=== PATIENT | male | born 1945 | race Caucasian/White ===

== ENCOUNTER 2017-10-24 15:37 | Observation (INO) | payer MEDICARE, BC ==
[~2017-10-24] VITALS: Ht 172.7 cm; Wt 81.5 kg
[2017-10-24 15:45] VITALS: BP 109/57; PULSE 71; RESP 18; TEMP 97.5; O2SAT 98
[2017-10-24] MEDS ORDERED: METF500T PO (15:59)
[2017-10-24] MEDS ORDERED: TAMS0.4C4 PO (15:59)
[2017-10-24] MEDS ORDERED: ATOR40TA16 PO (15:59)
--- NOTE | 2017-10-24 16:11 | RADRPT ---
EXAM DATE: 10/24/2017 4:05 PM EDT AGE/SEX: 72 years / Male INDICATIONS: Syncopal episode, left sided gaze. CLINICAL DATA: This is the patient's initial encounter. Patient reports that signs and symptoms have been present for 1 day and indicates a pain score of 0/10. MEDICAL/SURGICAL HISTORY: Diabetes. . RADIATION DOSE: 55.51 CTDI (mGy) COMPARISON: No prior exams available for comparison. TECHNIQUE: CT of the head without contrast. Using automated exposure control and adjustment of the mA and/or kV according to patient size, radiation dose was kept as low as reasonably achievable to ob tain optimal diagnostic quality images. FINDINGS: Cerebrum: The ventricles are normal for age. No evidence of midline shift, mass lesion, hemorrhage or acute infarction. No extraaxial fluid collections are seen. Posterior Fossa: The cerebellum and brainstem are intact. The 4th ventricle is midline. The cerebe llopontine angle is unremarkable. Extracranial: The visualized portion of the orbits is intact. Skull: The calvaria is intact. No evidence of skull fracture. CONCLUSION: 1. Negative CT Head non contrast. Electronically signed by: Rasta Bearden MD 10/24/2017 4:10 PM EDT
--- NOTE | 2017-10-24 16:16 | PD ---
HPI Chief Complaint: TIA Time Seen by Provider: 15:43 Travel History International Travel<30 days: No Contact w/Intl Traveler<30days: No Traveled to known affect area: No History of Present Illness HPI 72yo M was brought in as stroke alert by [facility]. As per [facility], pt was having a procedure at [facility] and when they arrived, he had left sided weakness, left arm more left leg and also left gaze. Pt's symptoms had completely resolved when he arrived to the ED. Pt was there today for evaluation of his blurry vision in left eye for 2 weeks. [facility] Past Medical History High Cholesterol: Yes Diabetes: Yes Patient Takes Glucophage: Yes Diminished Hearing: No Genitourinary: Yes (prostate issues) Influenza Vaccination: No ?: Not Social History Alcohol Use: No Tobacco Use: Yes Allergies-Medications (Allergen,Severity, Reaction): Coded Allergies: No Known Allergies (Verified Allergy, Unknown, 10/24/17) Reported Meds & Prescriptions Reported Meds & Active Scripts Active Reported Atorvastatin (Atorvastatin Calcium) 40 Mg Tab 40 Mg PO HS Tamsulosin (Tamsulosin HCl) 0.4 Mg Cap 0.8 Mg PO HS Metformin (Metformin HCl) 500 Mg Tab 500 Mg PO DAILY With a meal Review of Systems Except as stated in HPI: all other systems reviewed are Neg Physical Exam Narrative GENERAL: 72yoM not in distress. SKIN: Focused skin assessment warm/dry. HEAD: Atraumatic. Normocephalic. EYES: Pupils are dilated. No scleral icterus. No injection or drainage. ENT: No nasal bleeding or discharge. Mucous membranes pink and moist. NECK: Trachea midline. No JVD. CARDIOVASCULAR: Regular rate and rhythm. No murmur appreciated. RESPIRATORY: No accessory muscle use. Clear to auscultation. Breath sounds equal bilaterally. GASTROINTESTINAL: Abdomen soft, non-tender, nondistended. MUSCULOSKELETAL: No obvious deformities. No clubbing. No cyanosis. No edema. NEUROLOGICAL: Awake and alert. No obvious cranial nerve deficits. Motor grossly within normal limits in all extremities. Sensation intact. Normal speech. NIH stroke scale 0. PSYCHIATRIC: Appropriate mood and affect; insight and judgment normal. Data Data Last Documented VS Vital Signs Date Time Temp Pulse Resp B/P (MAP) Pulse Ox O2 Delivery O2 Flow Rate FiO2 10/24/17 16:25 63 18 113/52 (72) 98 Room Air 10/24/17 15:[address] Brain W/O Iv Contrast(Rout) (10/24/17 ) Complete Blood Count With Diff (10/24/17 15:44) Basic Metabolic Panel (Bmp) (10/24/17 15:44) Act Partial Throm Time (Ptt) (10/24/17 15:44) Prothrombin Time / Inr (Pt) (10/24/17 15:44) Aspirin (Aspirin) (10/24/17 17:00) Labs Laboratory Tests Test 10/24/17 16:10 White Blood Count 8.5 TH/MM3 Red Blood Count 3.80 MIL/MM3 Hemoglobin 12.4 GM/DL Hematocrit 36.9 % Mean Corpuscular Volume 97.0 FL Mean Corpuscular Hemoglobin 32.7 PG Mean Corpuscular Hemoglobin Concent 33.7 % Red Cell Distribution Width 13.6 % Platelet Count 233 TH/MM3 Mean Platelet Volume 7.9 FL Neutrophils (%) (Auto) 67.3 % Lymphocytes (%) (Auto) 26.6 % Monocytes (%) (Auto) 4.0 % Eosinophils (%) (Auto) 0.7 % Basophils (%) (Auto) 1.4 % Neutrophils # (Auto) 5.7 TH/MM3 Lymphocytes # (Auto) 2.3 TH/MM3 Monocytes # (Auto) 0.3 TH/MM3 Eosinophils # (Auto) 0.1 TH/MM3 Basophils # (Auto) 0.1 TH/MM3 CBC Comment DIFF FINAL Differential Comment Prothrombin Time 12.0 SEC Prothromb Time International Ratio 1.2 RATIO Activated Partial Thromboplast Time 24.9 SEC Blood Urea Nitrogen 13 MG/DL Creatinine 1.00 MG/DL Random Glucose 119 MG/DL Calcium Level 9.0 MG/DL Sodium Level 138 MEQ/L Potassium Level 3.7 MEQ/L Chloride Level 103 MEQ/L Carbon Dioxide Level 25.6 MEQ/L Anion Gap 9 MEQ/L Estimat Glomerular Filtration Rate 74 ML/MIN [facility] Medical Decision Making Medical Screen Exam Complete: Yes Emergency Medical Condition: Yes Interpretation(s) EKG: NSR 68bpm. Normal axis. RBBB. No significant ST elevation or depression. Differential Diagnosis TIA vs. medication effects vs. hypotension Narrative Course 72yo M was brought in by [facility]AC as stroke alert. However, all his symptoms resolved upon arrival so it was downgraded to a TIA work up. I discussed with Dr. Roverto Hudson from [facility] [phone] who said pt was referred to him for uveitis of left eye and does have it and is on steroids. He underwent a fluorescein angiogram today and his mental status changed prior to the injection as well as after. Said he dropped his water and was definitely not as lucid. Labs reviewed, no leukocytosis. H/H 12.4/36.9. BMP unremarkable. CT brain negative. Pt given aspirin and will admit for TIA work up. Discussed with Dr. Díaz and accepted to her service. Diagnosis Primary Impression: TIA (transient ischemic attack) Qualified Codes: G45.9 - Transient cerebral ischemic attack, unspecified Admitting Information Admitting Physician Requests: Lisa Fernandes DO Oct 24, 2017 16:16
[2017-10-24 16:25] VITALS: BP 113/52; PULSE 63; RESP 18; O2SAT 98
[2017-10-24 16:25] LABS: AUTOMATED NEUTROPHIL # 5.7 TH/MM3 (1.8-7.7); BASOPHIL # 0.1 TH/MM3 (0-0.2); BASOPHIL % 1.4 % (0.0-2.0); EOSINOPHIL # 0.1 TH/MM3 (0-0.4); EOSINOPHIL % 0.7 % (0.0-4.0); HEMATOCRIT 36.9 % (39.0-51.0); HEMOGLOBIN 12.4 GM/DL (13.0-17.0); LYMPH % 26.6 % (9.0-44.0); LYMPHOCYTE # 2.3 TH/MM3 (1.0-4.8); MEAN CORPUSCULAR HEMOGLOBIN 32.7 PG (27.0-34.0); MEAN CORPUSCULAR HGB CONC 33.7 % (32.0-36.0); MEAN PLATELET VOLUME 7.9 FL (7.0-11.0); MONOCYTE # 0.3 TH/MM3 (0-0.9); NEUT % 67.3 % (16.0-70.0); PLATELET COUNT 233 TH/MM3 (150-450); RED CELL DISTRIBUTION WIDTH 13.6 % (11.6-17.2); WHITE BLOOD COUNT 8.5 TH/MM3 (4.0-11.0)
[2017-10-24 16:48] LABS: BICARBONATE 25.6 MEQ/L (21.0-32.0)
[2017-10-24 16:50] LABS: INTERNATIONAL NORMALIZED RATIO 1.2 RATIO
[2017-10-24] MEDS ORDERED: ASPIRIN 325 MG TAB PO ONE (17:00)
[2017-10-24] MEDS ORDERED: DEXTROSE 50% IN WATER 50 ML VIAL(D50) IV PUSH PRN (17:15)
[2017-10-24] MEDS ORDERED: GLUCAGON 1 MG/ML VIAL OTHER PRN (17:15)
[2017-10-24] MEDS ORDERED: SODIUM CHLORIDE 0.9% FLUSH 10 ML FLUSH IV FLUSH PRN (17:15)
--- NOTE | 2017-10-24 17:59 | HHI.HP ---
HPI Service [facility] Primary Care Physician Kwadwo Olson M.D. 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 Stroke alert was called. Supposedly patient underwent a fluorescein angiogram today for uveitis of left eye and per records patient's mental status changed, as well as patient appeared to have left upper and lower extremity weakness with left eye gaze. Per records symptoms improved upon presentation to the ER. The patient's states that the business systems lead dilated his eyes and states that they had trouble with his left eye responding properly to medication dilation. Patient denies any recent illness including fever, chills, cough, shortness of breath, headache, dizziness, lightheadedness, abdominal pain, nausea or vomiting, diarrhea or dysuria. PCP is Dr. Olson, denies any new changes to his medicines. Review of Systems Constitutional: COMPLAINS OF: Fatigue, DENIES: Diaphoretic episodes, Fever, Chills Eyes: DENIES: Blurred vision, Diplopia, Vision loss Respiratory: DENIES: Cough, Sputum production, Shortness of breath Cardiovascular: DENIES: Chest pain, Palpitations, Syncope, Dyspnea on Exertion , Lower Extremity Edema Gastrointestinal: DENIES: Abdominal pain Musculoskeletal: DENIES: Joint pain Hematologic/lymphatic: DENIES: Bruising Neurologic: DENIES: Abnormal gait, Headache, Localized weakness, Paresthesias, Seizures, Speech Problems, Tremor, Poor Balance Psychiatric: DENIES: Anxiety Except as stated in HPI: all other systems reviewed are Neg Past Family Social History Past Medical History Left eye uveitis Diabetes Hyperlipidemia BPH Past Surgical History Bilateral knee arthroplasty Reported Medications Active Reported Atorvastatin (Atorvastatin Calcium) 40 Mg Tab 40 Mg PO HS Tamsulosin (Tamsulosin HCl) 0.4 Mg Cap 0.8 Mg PO HS Metformin (Metformin HCl) 500 Mg Tab 500 Mg PO DAILY With a meal Allergies: Coded Allergies: No Known Allergies (Verified Allergy, Unknown, 10/24/17) Active Ordered Medications Current Medications Medications (Trade) Dose Ordered Sig/Favian Route Start Time Stop Time Status Last Admin (NS Flush) 2 ml BID IV FLUSH 10/24/17 21:00 (NS Flush) 2 ml UNSCH PRN IV FLUSH 10/24/17 17:15 (D50w (Vial) Inj) 50 ml UNSCH PRN IV PUSH 10/24/17 17:15 (Glucagon Inj) 1 mg UNSCH PRN OTHER 10/24/17 17:15 Family History Paternal medical history significant for Alzheimer's. Mother had pancreatic cancer. Social History Patient admits to smoking one half pack per day cigarettes since his teen years. Denies any alcohol or illicit drug use. Physical Exam Vital Signs Vital Signs Date Time Temp Pulse Resp B/P (MAP) Pulse Ox O2 Delivery O2 Flow Rate FiO2 10/24/17 16:25 63 18 113/52 (72) 98 Room Air 10/24/17 15:45 97.5 71 18 109/57 (74) 98 Physical Exam GENERAL: Well-developed, well-nourished patient in [facility]. SKIN: Warm and dry. No rash. HEAD: Normocephalic. Atraumatic. EYES: Pupils equal and round. No scleral icterus. No injection or drainage. Right pupil dilated 4 mm, left eye 3 mm. ENT: No nasal bleeding or discharge. Mucous membranes pink and moist. NECK: Supple. Trachea midline. CARDIOVASCULAR: Regular rate and rhythm. S1, S2 noted. No murmur appreciated. RESPIRATORY: No accessory muscle use. Clear to auscultation. Breath sounds equal bilaterally. GASTROINTESTINAL: Abdomen soft, non-tender, nondistended. Normoactive bowel sounds x4. MUSCULOSKELETAL: No obvious deformities. Extremities without clubbing, cyanosis , or edema. NEUROLOGICAL: Awake and alert. No obvious cranial nerve deficits. Motor grossly within normal limits. 5/5 muscle strength in bilateral upper and lower extremities. Normal speech. PSYCHIATRIC: Appropriate mood and affect; insight and judgment normal. Laboratory Laboratory Tests Test 10/24/17 16:10 White Blood Count 8.5 Red Blood Count 3.80 Hemoglobin 12.4 Hematocrit 36.9 Mean Corpuscular Volume 97.0 Mean Corpuscular Hemoglobin 32.7 Mean Corpuscular Hemoglobin Concent 33.7 Red Cell Distribution Width 13.6 Platelet Count 233 Mean Platelet Volume 7.9 Neutrophils (%) (Auto) 67.3 Lymphocytes (%) (Auto) 26.6 Monocytes (%) (Auto) 4.0 Eosinophils (%) (Auto) 0.7 Basophils (%) (Auto) 1.4 Neutrophils # (Auto) 5.7 Lymphocytes # (Auto) 2.3 Monocytes # (Auto) 0.3 Eosinophils # (Auto) 0.1 Basophils # (Auto) 0.1 CBC Comment DIFF FINAL Differential Comment Prothrombin Time 12.0 Prothromb Time International Ratio 1.2 Activated Partial Thromboplast Time 24.9 Blood Urea Nitrogen 13 Creatinine 1.00 Random Glucose 119 Calcium Level 9.0 Sodium Level 138 Potassium Level 3.7 Chloride Level 103 Carbon Dioxide Level 25.6 Anion Gap 9 Estimat Glomerular Filtration Rate 74 Result Diagram: 10/24/17 1610 10/24/17 1610 Imaging Last Impressions Head CT 10/24/17 0000 Signed Impressions: CONCLUSION: 1. Negative CT Head non contrast. Septic Shock Reassessment Septic shock perfusion: reassessment completed Caprini VTE Risk Assessment Caprini VTE Risk Assessment: Mod/High Risk (score >= 2) Caprini Risk Assessment Model Point Value = 1 Point Value = 2 Point Value = 3 Point Value = 5 Age 41-60 Minor surgery BMI > 25 kg/m2 Swollen legs Varicose veins or History of unexplained or recurrent spontaneous Oral contraceptives or hormone replacement Sepsis (< 1 month) Serious lung disease, including pneumonia (< 1 month) Abnormal pulmonary function Acute myocardial infarction Congestive heart failure (< 1 month) History of inflammatory bowel disease Medical patient at bed rest Age 61-74 Arthroscopic surgery Major open surgery (> 45 min) Laparoscopic surgery (> 45 min) Malignancy Confined to bed (> 72 hours) Immobilizing plaster cast Central venous access Age >= 75 History of VTE Family history of VTE Factor V Leiden Prothrombin [id number] Lupus anticoagulant Anticardiolipin antibodies Elevated serum homocysteine Heparin-induced thrombocytopenia Other congenital or acquired thrombophilia Stroke (< 1 month) Elective arthroplasty Hip, pelvis, or leg fracture Acute spinal cord injury (< 1 month) Prophylaxis Regimen Total Risk Factor Score Risk Level Prophylaxis Regimen 0-1 Low Early ambulation 2 Moderate Order ONE of the following: *Sequential Compression Device (SCD) *Heparin 5000 units SQ BID 3-4 Higher Order ONE of the following medications: *Heparin 5000 units SQ TID *Enoxaparin/Lovenox 40 mg SQ daily (WT < 150 kg, CrCl > 30 mL/min) *Enoxaparin/Lovenox 30 mg SQ daily (WT < 150 kg, CrCl > 10-29 mL/min) *Enoxaparin/Lovenox 30 mg SQ BID (WT < 150 kg, CrCl > 30 mL/min) AND/OR *Sequential Compression Device (SCD) 5 or more Highest Order ONE of the following medications: *Heparin 5000 units SQ TID (Preferred with Epidurals) *Enoxaparin/Lovenox 40 mg SQ daily (WT < 150 kg, CrCl > 30 mL/min) *Enoxaparin/Lovenox 30 mg SQ daily (WT < 150 kg, CrCl > 10-29 mL/min) *Enoxaparin/Lovenox 30 mg SQ BID (WT < 150 kg, CrCl > 30 mL/min) AND *Sequential Compression Device (SCD) Assessment and Plan Problem List: (1) TIA (transient ischemic attack) ICD Code: G45.9 - Transient cerebral ischemic attack, unspecified Status: Acute Assessment and Plan This is a pleasant 72-year-old male patient with a known medical history of diabetes, hyperlipidemia and BPH who presented 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 Stroke alert was called. Transient ischemic attack rule out rule out CVA - Patient presented with left-sided weakness and left gaze as well as altered mental status - Head CT reviewed and negative. Will obtain MRI of the brain as well as ultrasound carotid arteries. Follow. - Was given aspirin 1 in ED. Continue daily. - Lipid panel added to labs, pending. Follow. As well as hemoglobin A1c. - CBC and BMP reviewed, essentially remarkable. - Speech therapy consulted, rule out any dysplasia. - Continue neuro checks. - Continue cardiac telemetry, monitor for any arrhythmias. - Obtain echocardiogram, pending. Follow. - Physical therapy and Occupational Therapy consulted, input and recommendations pending. Type 2 diabetes mellitus, chronic: Before meals at bedtime Accu-Cheks, sliding scale, cover as needed. Hemoglobin A1c pending. Hyperlipidemia, chronic: Continue home statin. BPH: We will continue home tamsulosin. DVT prophylaxis: SCDs. Problem Qualifiers (1) TIA (transient ischemic attack): Qualified Codes: G45.9 - Transient cerebral ischemic attack, unspecified [place] Rob[place] Oct 24, 2017 17:59
[2017-10-24 18:19] VITALS: BP 156/68; PULSE 74; RESP 18; O2SAT 98
[2017-10-24] MEDS ORDERED: PRED1SUS LEFT EYE (19:40)
[2017-10-24] MEDS ORDERED: ATRO1SOL11 LEFT EYE (19:41)
[2017-10-24] MEDS ORDERED: VALT1TAB PO (19:44)
[2017-10-24] MEDS ORDERED: ZIRG0.15 (19:44)
[2017-10-24 20:00] VITALS: BP 169/80; PULSE 107; RESP 20; TEMP 96.5; O2SAT 100
[2017-10-24 20:30] VITALS: PULSE 84
[2017-10-24] MEDS ORDERED: TAMSULOSIN HCL 0.4 MG CAP PO SCH (21:00)
[2017-10-24] MEDS ORDERED: ATORVASTATIN 40 MG TAB PO SCH (21:00)
[2017-10-24] MEDS: SODIUM CHLORIDE 0.9% FLUSH 10 ML FLUSH IV FLUSH SCH (21:09)
[2017-10-25] VITALS: BP 169/77; PULSE 60; RESP 20; TEMP 96.9; O2SAT 97
[2017-10-25 04:00] VITALS: BP 182/79; PULSE 59; RESP 20; TEMP 97.1; O2SAT 97
[2017-10-25 04:37] VITALS: BP 156/66
[2017-10-25 08:51] VITALS: BP 135/67; PULSE 73; RESP 16; TEMP 98.3; O2SAT 96
[2017-10-25] MEDS ORDERED: ASPIRIN 81 MG CHEW TAB CHEW SCH (09:00)
[2017-10-25] MEDS: SODIUM CHLORIDE 0.9% FLUSH 10 ML FLUSH IV FLUSH SCH (09:00)
[2017-10-25] MEDS ORDERED: ASPI81 CHEW (09:20)
--- NOTE | 2017-10-25 09:20 | HHI.PR ---
Subjective Remarks Follow up TIA. Patient seen and examined, sitting up in chair comfortably no apparent distress. Patient's MRI today which was negative. Ultrasound carotids negative. Lab work unremarkable. Patient is eager to go home. All symptoms have resolved. Eating well and drinking well. No fever overnight. Vital signs stable. Will discharge home today follow-up with PCP. Objective Vitals Vital Signs Date Time Temp Pulse Resp B/P (MAP) Pulse Ox O2 Delivery O2 Flow Rate FiO2 10/25/17 08:51 98.3 73 16 135/67 (89) 96 10/25/17 04:37 156/66 (96) 10/25/17 04:00 97.1 59 20 182/79 (113) 97 10/25/17 00:00 96.9 60 20 169/77 (107) 97 10/24/17 20:30 84 10/24/17 20:00 96.5 107 20 169/80 (109) 100 10/24/17 18:29 10/24/17 18:19 74 18 156/68 (97) 98 Room Air 10/24/17 18:00 98 Room Air 10/24/17 16:25 63 18 113/52 (72) 98 Room Air 10/24/17 15:45 97.5 71 18 109/57 (74) 98 I/O 10/24/17 10/24/17 10/24/17 10/25/17 10/25/17 10/25/17 07:00 15:00 23:00 07:00 15:00 23:00 Intake Total 120 ml Balance 120 ml Intake Oral 120 ml # Voids 1 6 # Bowel Movements 0 Result Diagram: 10/24/17 1610 10/24/17 1610 Imaging Last Impressions Carotid Artery Ultrasound 10/25/17 0000 Signed Impressions: CONCLUSION: Atherosclerotic plaque bilaterally but more abundant on the left. Less than 50% stenoses suspected bilaterally. The left is less well evaluated due to the marlen cified nature and shadowing. If there is strong clinical concern for significan t stenosis on the left consider CTA of the carotid arteries. Brain MRI 10/25/17 0000 Signed Impressions: CONCLUSION: 1. Negative MR Brain non contrast. Head CT 10/24/17 0000 Signed Impressions: CONCLUSION: 1. Negative CT Head non contrast. Objective Remarks GENERAL: Well-developed, well-nourished patient in [place]. SKIN: Warm and dry. No rash. HEAD: Normocephalic. Atraumatic. EYES: Pupils equal and round. No scleral icterus. No injection or drainage. Pupils equal today. ENT: No nasal bleeding or discharge. Mucous membranes pink and moist. NECK: Supple. Trachea midline. CARDIOVASCULAR: Regular rate and rhythm. S1, S2 noted. No murmur appreciated. RESPIRATORY: No accessory muscle use. Clear to auscultation. Breath sounds equal bilaterally. GASTROINTESTINAL: Abdomen soft, non-tender, nondistended. Normoactive bowel sounds x4. MUSCULOSKELETAL: No obvious deformities. Extremities without clubbing, cyanosis , or edema. NEUROLOGICAL: Awake and alert. No obvious cranial nerve deficits. Motor grossly within normal limits. 5/5 muscle strength in bilateral upper and lower extremities. Normal speech. PSYCHIATRIC: Appropriate mood and affect; insight and judgment normal. 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 Stroke alert was called. Transient ischemic attack rule out rule out CVA - Patient presented with left-sided weakness and left gaze as well as altered mental status. These have all resolved. - Head CT reviewed and negative. MRI of the brain negative. Ultrasound of the carotids with mild stenosis less than 50%. - Was given aspirin 1 in ED. Continue daily. - Lipid panel normal. Continue home statin. - CBC and BMP reviewed, essentially remarkable. - Speech therapy consulted, no dysphagia noted. - Continue cardiac telemetry, monitor for any arrhythmias. No arrhythmias overnight. - Echocardiogram ordered, patient refusing, states he has had one within the last 3 months. Which was reportedly unremarkable. - Physical therapy and Occupational Therapy consulted, patient is refusing rehab efforts and input. Type 2 diabetes mellitus, chronic: Before meals at bedtime Accu-Cheks, sliding scale, cover as needed. Hemoglobin A1c pending. Hyperlipidemia, chronic: Continue home statin. BPH: Will continue home tamsulosin. DVT prophylaxis: SCDs. Discharge patient to home. Condition on discharge: Improved. Heart healthy regular Diet as tolerated. Ad Zulay activity. Rx written: See discharge instructions. Follow-up with primary care physician. Problem Qualifiers (1) TIA (transient ischemic attack): Qualified Codes: G45.9 - Transient cerebral ischemic attack, unspecified [place] Roberson Oct 25, 2017 09:20
--- NOTE | 2017-10-25 09:21 | HHI.DCPOC ---
Discharge Care Plan Diagnosis: (1) TIA (transient ischemic attack) Goals to Promote Your Health * To prevent worsening of your condition and complications * To maintain your health at the optimal level Directions to Meet Your Goals Take your medications as prescribed Follow your dietary instruction Follow activity as directed Keep your appointments as scheduled Take your immunizations and boosters as scheduled If your symptoms worsen call your PCP, if no PCP go to Urgent Care Center or Emergency Room Smoking is Dangerous to Your Health. Avoid second hand smoke Call the 24-hour hour crisis hotline for domestic abuse at [place] Oct 25, 2017 09:21
[2017-10-25 10:12] LABS: CHOLESTEROL/ HDL RATIO 4.23 RATIO; HDL CHOLESTEROL 39.2 MG/DL (40.0-60.0)
--- NOTE | 2017-10-25 10:48 | RADRPT ---
EXAM DATE: 10/25/2017 9:11 AM EDT AGE/SEX: 72 years / Male INDICATIONS: Transient ischemic attack. CLINICAL DATA: This is the patient's initial encounter. Patient reports that signs and symptoms have been present for 1 day and indicates a pain score of 0/10. MEDICAL/SURGICAL HISTORY: Hypercholesterolemia. Hypertension. Diabetes. Syncope. BPH. Left u veitis. . Bilateral knee surgery. COMPARISON: No prior exams available for comparison. VELOCITY PARAMETERS: ICA/CCA Ratio: Right 0.9 , Left 1.1 ICA: Right 127.6 cm/sec, Left 124.0 cm/sec CCA: Right 134.6 cm/sec, Left 116.1 cm/sec ECA: Right 129.9 cm/sec, Left 143.7 cm/sec Vertebral: Right 40.0 cm/sec antegrade, Left 70.4 cm/sec antegrade FINDINGS: Right Carotid: Scattered calcified plaque involving the carotid bulb and proximal ICA. No significan t narrowing by grayscale analysis. The waveforms are within normal limits. Left Carotid: Calcified atherosclerotic plaque involving the carotid bulb and ICA origin. The calcif ied nature generates shadowing limiting the grayscale analysis.. The waveforms are within normal hoff its. Other: None. CONCLUSION: Atherosclerotic plaque bilaterally but more abundant on the left. Less than 50% stenoses suspected bi laterally. The left is less well evaluated due to the calcified nature and shadowing. If there is str radha clinical concern for significant stenosis on the left consider CTA of the carotid arteries. Electronically signed by: Shaun Galvan MD 10/25/2017 10:46 AM EDT
--- NOTE | 2017-10-25 11:32 | RADRPT ---
EXAM DATE: 10/25/2017 9:38 AM EDT AGE/SEX: 72 years / Male INDICATIONS: CVA. Dizziness. CLINICAL DATA: This is the patient's subsequent encounter. Patient reports that signs and symptoms h ave been present for 2 days and indicates a pain score of 0/10. MEDICAL/SURGICAL HISTORY: None. . Right and left knee. COMPARISON: No prior exams available for comparison. TECHNIQUE: Multiplanar, multisequence examination of the brain was performed without contrast. FINDINGS: Cerebrum: The ventricles are normal for age. No evidence of midline shift, mass lesion, hemorrhage or acute infarction. No extraaxial fluid collections are seen. The pituitary gland and suprasellar cistern are normal in configuration. White Matter: No significant signal abnormalities are seen in the white matter. Posterior Fossa: The cerebellum and brainstem are intact. The 4th ventricle is midline. The cerebel lopontine angle is unremarkable. The cerebellar tonsils are normal in position. Diffusion Imaging: No focal areas of restricted diffusion are seen. No evidence of acute infarction . Extracranial: The visualized portions of the orbits and paranasal sinuses are unremarkable. CONCLUSION: 1. Negative MR Brain non contrast. Electronically signed by: Josue Servin MD 10/25/2017 11:31 AM EDT
[2017-10-25 16:48] LABS: HEMOGLOBIN A1C 5.9 % (4.3-6.0)
--- NOTE | 2017-10-25 18:32 | EKG ---
Date Performed: 10/24/2017 Time Performed: 15:56:35 PTAGE: 72 years EKG: Sinus rhythm RIGHT BUNDLE BRANCH BLOCK ABNORMAL ECG NO PREVIOUS TRACING DOCTOR: Naheed Sauceda Interpretating Date/Time 10/25/2017 18:30:12
== END 2017-10-25 12:44 | disposition home or self-care (01) ==
LOC: PHED 15:37 → PHEDA 17:23 → INTOOBSV 17:23 → PH3B 18:46
PROVIDERS: ADMIT Hospitalist; ATTEND Hospitalist
DX: G45.9 Transient cerebral ischemic attack, unspecified (principal); E11.9 Type 2 diabetes mellitus without complications; E78.5 Hyperlipidemia, unspecified; N40.0 Benign prostatic hyperplasia without lower urinary tract symptoms; H20.9 Unspecified iridocyclitis; E78.00 Pure hypercholesterolemia, unspecified; R94.31 Abnormal electrocardiogram [ECG] [EKG]; F17.200 Nicotine dependence, unspecified, uncomplicated; Z96.653 Presence of artificial knee joint, bilateral; Z80.0 Family history of malignant neoplasm of digestive organs; Z82.0 Family history of epilepsy and other diseases of the nervous system
CPT/HCPCS: 70450; 70551; 80048; 80061; 82948; 83036; 85025; 85610; 85730; 93005; 93880; 99285; G0378